=== PATIENT | male | born 1945 | race Caucasian/White ===

== ENCOUNTER → 2018-08-18 07:08 | Outpatient (CLI) | payer BC, SELFPAY ==
[2018-08-18 09:53] LABS: Cholesterol 203 mg/dL (140-199); HDL Cholesterol 29 mg/dL (40-60); LDL Cholesterol Calculated 154 mg/dL (<100); Triglycerides 100 mg/dL (35-150)
[2018-08-20 14:04] LABS: PSA, Total < 0.1 ng/mL (< 4.1)
== END ==
PROVIDERS: PCP Family Medicine; Visit Provider Internal Medicine Cardiovascular Disease
DX: I25.10 Atherosclerotic heart disease of native coronary artery without angina pectoris (principal); C61 Malignant neoplasm of prostate
CPT/HCPCS: 36415; 80061; 84153; 84154

== ENCOUNTER → 2018-09-16 09:33 | Outpatient (CLI) | payer BC, SELFPAY ==
--- NOTE | 2018-09-16 | DI.US.S_ITS ---
PROCEDURE: US SCROTUM INDICATIONS: LEFT SIDE HERNIA TECHNIQUE: Real-time scanning was performed of the scrotum and testicles, with image documentation. Color and pulse Doppler interrogation was performed of both testicles. COMPARISON: None. FINDINGS: Right: Testicle is normal in size at 2.2 x 3.0 x 5.3 cm, and homogenous in echotexture. Epididymis is normal in overall size and morphology. No hydrocele or varicoceles. Overlying scrotal skin is normal in thickness. Left: Testicle is normal in size at 2.2 x 2.7 x 3.4 cm, and homogeneous in echotexture. Epididymis is normal in overall size and morphology. No hydrocele or varicoceles. Overlying scrotal skin is normal in thickness. Left groin area evaluation reveals no evidence of hernia. Doppler: Color and pulse Doppler demonstrate normal and symmetric arterial flow in both testicles. IMPRESSION: At time of scanning there is no visualized evidence of hernia on the left. Scrotal ultrasound appears normal bilaterally. Dictated by: Kenroy Caro M.D. on 09/16/2018 at 11:42 Approved by: Kenroy Caro M.D. on 09/16/2018 at 11:43
== END ==
PROVIDERS: PCP Family Medicine; Visit Provider Family Medicine
DX: K40.90 Unilateral inguinal hernia, without obstruction or gangrene, not specified as recurrent (principal)
CPT/HCPCS: 76870

== ENCOUNTER → 2018-10-01 14:29 | Outpatient (CLI) | payer BC, SELFPAY ==
--- NOTE | 2018-10-01 14:36 | DI.CT.S_ITS ---
PROCEDURE: CT ABDOMEN PELVIS W CON INDICATIONS: Unilateral inguinal hernia, without obstruction TECHNIQUE: After the administration of oral and intravenous contrast, 5 mm thick sections acquired from the diaphragms to the symphysis. 5 mm thick coronal and sagittal reformats were performed. For radiation dose reduction, the following was used: automated exposure control, adjustment of mA and/or kV according to patient size. COMPARISON: None. FINDINGS: Image quality: Diagnostic. ABDOMEN: Lung bases: Lung bases are clear. Heart size is normal. Coronary artery atherosclerosis is present. Solid organs: The liver is somewhat hypodense when compared to the spleen. There is a small hypodense lesion identified involving the periphery of the posterior segment of the right hepatic lobe that demonstrates central nodular enhancement measuring 1.2 cm in diameter (image 21, series 2), compatible with a small hemangioma. No definite additional hepatic lesions are evident. The spleen, pancreas, and adrenals are within normal limits. Multiple parapelvic cysts are evident involving both kidneys. A 3 mm nonobstructing inferior right renal calculus is present. No definite additional renal calculi are identified. Peritoneum and bowel: There is a slight hernia. The stomach is otherwise unremarkable. Borderline prominent small bowel loops are present without sachin obstruction. No bowel loops are seen measuring greater than 3 cm. A large amount of stool is seen within the proximal colon. The distal colon is normal in caliber. No free fluid, loculated fluid collection or free air is evident. There is a very small fat-containing periumbilical hernia. Nodes and vessels: No retroperitoneal or mesenteric adenopathy. Aorta and inferior vena cava are normal in caliber. There is aortic atherosclerosis. Bones: No acute fractures or suspicious osseous lesions are identified. Mild to moderate degenerative changes of the spine are most pronounced involving the lower lumbar levels. PELVIS: Genitourinary: Bladder wall thickness is normal. The prostate appears to be surgically absent. A penile pump/implant is present. Miscellaneous: There is a small left inguinal hernia that contains a portion of the colon. The proximal and distal margins of the colon are within normal limits. There is a small fat-containing right inguinal hernia. Bones: No suspicious bony lesions. No acute pelvic fractures are evident. Moderate degenerative changes of the pelvic joints are present. IMPRESSION: 1. Small moderate-sized left inguinal hernia contains a portion of the sigmoid colon. There is no bowel obstruction. 2. Probable proximal colonic constipation. 3. Small fat-containing periumbilical hernia. 4. Mild hepatic steatosis. There is a small hemangioma of the right hepatic lobe. 5. Small hiatal hernia. 6. Nonobstructing inferior right nephrolithiasis. 7. Status post prostatectomy. A penile implant is present. Dictated by: Cheng Ramos M.D. on 10/01/2018 at 16:47 Approved by: Cheng Ramos M.D. on 10/01/2018 at 16:55
[2018-10-01 15:10] LABS: Estimated Glomerular Filt Rate > 60.0 mL/min (>60)
== END ==
PROVIDERS: PCP Family Medicine; Visit Provider Family Medicine
DX: K40.90 Unilateral inguinal hernia, without obstruction or gangrene, not specified as recurrent (principal); K46.9 Unspecified abdominal hernia without obstruction or gangrene; K76.0 Fatty (change of) liver, not elsewhere classified; K44.9 Diaphragmatic hernia without obstruction or gangrene; D18.09 Hemangioma of other sites; N20.0 Calculus of kidney
CPT/HCPCS: 36415; 74177; 82565

== ENCOUNTER → 2019-06-03 17:11 | Outpatient (CLI) | payer BC, SELFPAY ==
[2019-06-03 17:55] LABS: Influenza A - CEPHEID Flu A NEGATIVE (NEGATIVE); Influenza B - CEPHEID Flu B NEGATIVE (NEGATIVE)
== END ==
PROVIDERS: PCP Family Medicine; Visit Provider Physician Assistant
DX: J11.1 Influenza due to unidentified influenza virus with other respiratory manifestations (principal)
CPT/HCPCS: 87502

== ENCOUNTER → 2019-06-04 07:41 | Outpatient (CLI) | payer BC, SELFPAY ==
[2019-06-04 08:41] LABS: Add Manual Diff / Slide Review NO; Basophils Absolute Auto 0 /uL (0-100); Basophils Percent Auto 0.5 % (0-2); Eosinophils Absolute Auto 0 /uL (0-450); Eosinophils Percent Auto 1.2 % (2-4); Hematocrit 47.5 % (41-53); Lymphocytes Absolute Auto 700 /uL (1100-4500); Lymphocytes Percent Auto 21.5 % (25-40); Mean Corpuscular HGB Conc 33.6 % (30-36); Mean Corpuscular Hemoglobin 30.4 PG (26-34); Mean Corpuscular Volume 90.4 fL (80-100); Monocytes Absolute Auto 300 /uL (0-900); Monocytes Percent Auto 10.2 % (3-14); Neutrophils Absolute Auto 2200 /uL (1500-7000); Neutrophils Percent Auto 66.6 % (50-75); Platelet Count 126 X10^3/uL (150-400); Red Blood Cell Count 5.25 X10^6/uL (4.5-5.9); Red Cell Distribution Width 13.8 % (11.6-14.8); White Blood Cell Count 3.3 X10^3/uL (4.5-11.0)
[2019-06-04 08:45] LABS: Appearance Urine UA SL CLOUDY; Bilirubin Urine UA NEGATIVE (NEGATIVE); Color Urine UA YELLOW; Glucose Urine UA NEGATIVE (Negative); Ketones Urine UA TRACE (NEGATIVE); Leukocyte Esterase Urine UA 2+ (NEGATIVE); Nitrite Urine UA POSITIVE (Negative); Occult Blood Urine UA 3+ (Negative); Protein Urine UA TRACE (Negative); Specific Gravity Urine UA 1.025 (1.000-1.035); Urobilinogen Urine UA 0.2 E.U./dL (0.2); pH Urine UA 5.5 (4.5-8.0)
[2019-06-04 08:48] LABS: Monotest Negative (Negative)
[2019-06-04 09:02] LABS: Bacteria Urine Many (>30); Culture Indicated Urine Specimen Cultured; RBC Urine 5-10/HPF (0-5/HPF); WBC Urine 30-100/HPF (0-5/HPF)
[2019-06-04 09:10] LABS: Alanine Aminotransferase 24 IU/L (<50); Albumin Globulin Ratio 1.3 (1.0-2.8); Alkaline Phosphatase 47 U/L (38-126); Aspartate Aminotransferase 26 IU/L (17-59); BUN Creatinine Ratio 24.4 (6-22); Bilirubin Total 0.4 mg/dL (0.2-1.3); Blood Urea Nitrogen 22 mg/dL (9-20); Calcium 8.8 mg/dL (8.4-10.2); Carbon Dioxide 31 mmol/L (22-32); Chloride 101 mmol/L (98-107); Creatine Kinase 60 U/L (55-170); Estimated Glomerular Filt Rate > 60.0 mL/min (>60); Globulin 3.2 g/dL (1.7-4.1); Glucose 112 mg/dL (80-110); HEMOLYSIS < 15 (0-50); Potassium 3.9 mmol/L (3.4-5.1); Sodium 139 mmol/L (137-145); Total Protein 7.2 g/dL (6.3-8.2)
[2019-06-04 09:41] LABS: Prostate Specific Antigen < 0.064 ng/mL (0.10-4.00)
[2019-06-04 09:43] LABS: TSH w/ Reflex to FT4 1.65 uIU/mL (0.47-4.68)
== END ==
PROVIDERS: PCP Family Medicine; Referring Provider Physician Assistant; Visit Provider Physician Assistant
DX: R53.83 Other fatigue (principal)
CPT/HCPCS: 36415; 80053; 81001; 82550; 84153; 84443; 85025; 86318; 87077; 87086; 87186

== ENCOUNTER → 2020-03-30 10:55 | Outpatient (CLI) | payer BC, SELFPAY ==
[2020-03-30 11:35] LABS: BUN Creatinine Ratio 19.2 (6-22); Blood Urea Nitrogen 15 mg/dL (9-20); Estimated Glomerular Filt Rate > 60.0 mL/min (>60)
== END ==
PROVIDERS: PCP Family Medicine; Referring Provider Family Medicine; Visit Provider Family Medicine
DX: R10.32 Left lower quadrant pain (principal)
CPT/HCPCS: 36415; 82565; 84520

== ENCOUNTER → 2020-03-31 08:56 | Outpatient (CLI) | payer BC, SELFPAY ==
--- NOTE | 2020-03-31 10:11 | DI.CT.S_ITS ---
PROCEDURE: CT ABDOMEN PELVIS W CON INDICATIONS: Left lower quadrant pain TECHNIQUE: After the administration of oral and intravenous contrast, 5 mm thick sections acquired from the diaphragms to the symphysis. 5 mm thick coronal and sagittal reformats were performed. For radiation dose reduction, the following was used: automated exposure control, adjustment of mA and/or kV according to patient size. COMPARISON: [facility], CT, CT ABDOMEN PELVIS W CON, 10/01/2018, 15:40. FINDINGS: Image quality: Excellent. ABDOMEN: Lung bases: Lung bases are clear. Heart size is normal. Solid organs: Liver is normal in size and enhancement. Gallbladder is normal. Biliary system is non-dilated. Pancreas enhances normally. Spleen is normal in size and enhancement. No adrenal nodules. Kidneys are normal in size and enhancement, without hydronephrosis. Small nonobstructive renal calculi are present in right kidney. Mild bilateral renal pelviectasis. Peritoneum and bowel: Stomach, small bowel, and colon loops are normal in caliber and wall thickness. Mild sigmoid diverticulosis. No acute diverticulitis. There is a large amount of stool in colon. No free fluid or air. Nodes and vessels: No retroperitoneal or mesenteric adenopathy. Aorta and inferior vena cava are normal in caliber. Miscellaneous: No ventral hernias. PELVIS: Genitourinary: Bladder wall thickness is normal. Prostate is surgically absent. There is a penile prosthesis in the left anterior pelvis. Miscellaneous: No inguinal hernias or adenopathy. There are postsurgical changes related to left inguinal hernia repair. No recurrent inguinal hernia. Bones: No suspicious bony lesions. No vertebral body compression fractures. IMPRESSION: 1. Mild diverticulosis without diverticulitis. 2. A penile prosthesis is noted in the left anterior pelvis. 3. Postsurgical changes related to left inguinal hernia repair 4. A large amount of stool in colon. Dictated by: Larissa Burns M.D. on 03/31/2020 at 13:44 Approved by: Larissa Burns M.D. on 03/31/2020 at 16:45
== END ==
PROVIDERS: PCP Family Medicine; Referring Provider Family Medicine; Visit Provider Family Medicine
DX: R10.32 Left lower quadrant pain (principal); K57.30 Diverticulosis of large intestine without perforation or abscess without bleeding; N20.0 Calculus of kidney; Z90.79 Acquired absence of other genital organ(s)
CPT/HCPCS: 74177; Q9967

== ENCOUNTER → 2020-05-12 11:09 | Outpatient (CLI) | payer BC, SELFPAY ==
[2020-05-12] MEDS: COVID-19 VACC #1, MRNA(MOD) 100 MCG/0.5 ML VIAL IM (11:20)
== END ==
PROVIDERS: PCP Family Medicine; Visit Provider Internal Medicine
DX: Z23 Encounter for immunization (principal)
CPT/HCPCS: 0011A; 91301

== ENCOUNTER → 2020-05-24 09:42 | Outpatient (CLI) | payer BC, SELFPAY ==
--- NOTE | 2020-05-24 | DI.MRI.S_ITS ---
PROCEDURE: MR HEAD/BRAIN WO/W CON INDICATIONS: Memory/Cognitive changes TECHNIQUE: Noncontrast axial T1 spin echo, axial T2 fast spin echo, sagittal and axial FLAIR, coronal T2 fast spin echo, axial gradient echo, axial diffusion and ADC through the brain. After the administration of contrast, axial and coronal T1 spin echo with fat saturation through the brain. COMPARISON: None. FINDINGS: Image quality: Excellent. CSF spaces: Basal cisterns are patent. No extra-axial fluid collections. Ventricles are normal in size and shape. Brain: No midline shift. No intracranial bleeds or masses. No abnormal intracranial enhancement. There is cerebral volume loss for age. There is periventricular white matter chronic small vessel ischemic change. The brainstem appears normal. Diffusion-weighted images demonstrate no acute ischemic insults. No chronic ischemic insults. Normal intravascular flow voids are present. Skull and face: Calvarial marrow is normal in signal. Orbits appear normal. Sinuses: Sinuses and mastoids appear clear. IMPRESSION: 1. Volume loss and small vessel ischemic disease. 2. No acute process. No recent infarct. Dictated by: Tomas Mario M.D. on 05/24/2020 at 10:52 Approved by: Tomas Mario M.D. on 05/24/2020 at 10:54
== END ==
PROVIDERS: PCP Family Medicine; Referring Provider Family Medicine; Visit Provider Family Medicine
DX: R41.89 Other symptoms and signs involving cognitive functions and awareness (principal)
CPT/HCPCS: 70553

== ENCOUNTER → 2020-06-09 12:10 | Outpatient (CLI) | payer BC, SELFPAY ==
[2020-06-09] MEDS: COVID-19 VACC #2, MRNA(MOD) 100 MCG/0.5 ML VIAL IM (12:19)
== END ==
PROVIDERS: PCP Family Medicine; Visit Provider Internal Medicine
DX: Z23 Encounter for immunization (principal)
CPT/HCPCS: 0012A; 91301

== ENCOUNTER → 2020-06-26 09:08 | Outpatient (CLI) | payer BC, SELFPAY ==
--- NOTE | 2020-06-26 09:10 | DI.RAD.S_ITS ---
PROCEDURE: XR CERVICAL SPINE 4V OR 5V INDICATIONS: cervical radiculopathy TECHNIQUE: 5 views of the cervical spine acquired. COMPARISON: None. FINDINGS: Bones: No fractures or dislocations to the C7-T1 level. There is grade 1 anterolisthesis of C4 on C5. Degenerative endplate changes are noted at C4-5 and C5-6 levels. Oblique images demonstrate mild bilateral bony foraminal stenosis at C4-5 and C5-6 levels. Soft tissues: No prevertebral soft tissue swelling. IMPRESSION: No cervical spine fracture or dislocation. Degenerative disc disease at C4-5 and C5-6 levels with suggestion of mild bilateral bony foraminal stenosis as above. Dictated by: Carlos Enrique Meng M.D. on 06/26/2020 at 9:04 Approved by: Carlos Enrique Meng M.D. on 06/26/2020 at 9:05
== END ==
PROVIDERS: PCP Family Medicine; Referring Provider Physical Medicine & Rehabilitation; Visit Provider Physical Medicine & Rehabilitation
DX: M50.121 Cervical disc disorder at C4-C5 level with radiculopathy (principal); M75.42 Impingement syndrome of left shoulder
CPT/HCPCS: 20611; 72050; 99214; J1040

== ENCOUNTER → 2020-08-23 14:09 | Outpatient (CLI) | payer BC, SELFPAY ==
--- NOTE | 2020-08-23 14:11 | DI.RAD.S_ITS ---
PROCEDURE: XR SHOULDER LT MIN 2V INDICATIONS: Shoulder impingement TECHNIQUE: 3 views of the shoulder were acquired. COMPARISON: None. FINDINGS: Bones: No fractures or dislocations. No suspicious bony lesions. Visualized ribs appear intact. Moderate AC joint osteoarthritis, moderately severe glenohumeral joint degenerative osteoarthritis also. Soft tissues: No suspicious soft tissue calcifications. IMPRESSION: Moderate to moderately severe degenerative changes at the left shoulder which would predispose to impingement syndrome. Dictated by: Kenroy Caro M.D. on 08/23/2020 at 14:43 Approved by: Kenroy Caro M.D. on 08/23/2020 at 14:44
== END ==
PROVIDERS: PCP Family Medicine; Referring Provider Physical Medicine & Rehabilitation; Visit Provider Physical Medicine & Rehabilitation
DX: M75.42 Impingement syndrome of left shoulder (principal); M19.012 Primary osteoarthritis, left shoulder
CPT/HCPCS: 73030

== ENCOUNTER → 2020-09-20 11:42 | Outpatient (CLI) | payer BC, SELFPAY ==
--- NOTE | 2020-09-20 11:43 | DI.MRI.S_ITS ---
PROCEDURE: MR CERVICAL SPINE WO CON INDICATIONS: Cervical radiculopathy TECHNIQUE: Noncontrast sagittal T1 spin echo and T2 fast spin echo, sagittal STIR, foraminal oblique sagittal T2 fast spin echo, and axial gradient echo or T2 fast spin echo through the cervical spine. COMPARISON: None. FINDINGS: Image quality: Excellent. Alignment and Curvature: Normal cervical spine vertebral body height and alignment. Bone Marrow: No suspicious focal marrow signal abnormality. There is marrow edema in association with the left C3-C4 facets (best seen on series 5, image 14), with some adjacent soft tissue edema as well. Spinal Cord: Normal morphology and signal intensity of the cervical cord. There is no syrinx. Regional Soft Tissues: No paravertebral masses. Prevertebral soft tissues are otherwise normal in thickness. C2-C3: No spinal canal or neural foraminal stenosis. C3-C4: Posterior disc osteophyte complex flattens the ventral thecal sac. Facet and uncovertebral hypertrophy contribute to moderate left and mild right neural foraminal stenosis. C4-C5: Posterior disc osteophyte complex flattens the ventral thecal sac. Moderate-severe bilateral neural foraminal narrowing due to facet and uncovertebral hypertrophy. C5-C6: Posterior disc osteophyte complex flattens the ventral thecal sac without mass effect upon the cord. Severe bilateral neural foraminal narrowing due to facet and uncovertebral hypertrophy. C6-C7: Posterior disc osteophyte complex flattens the ventral thecal sac without mass effect upon the cord. Mild bilateral neural foraminal narrowing due to facet and uncovertebral hypertrophy. C7-T1: No significant degenerative changes, spinal canal stenosis, or neural foraminal stenosis. IMPRESSION: Varying degrees of neural foraminal stenosis, severe bilaterally at C5-C6 and moderate-severe bilaterally at C4-C5. Dictated by: Apolinar Olivares M.D. on 09/20/2020 at 15:06 Approved by: Apolinar Olivares M.D. on 09/20/2020 at 15:16
== END ==
PROVIDERS: PCP Family Medicine; Referring Provider Physical Medicine & Rehabilitation; Visit Provider Physical Medicine & Rehabilitation
DX: M54.12 Radiculopathy, cervical region (principal); M48.02 Spinal stenosis, cervical region
CPT/HCPCS: 72141

== ENCOUNTER → 2020-10-31 08:00 | Outpatient (CLI) | payer BC, SELFPAY ==
[2020-10-31 12:47] LABS: COVID19 -Nasal RAPID Negative (Negative)
== END ==
PROVIDERS: PCP Family Medicine; Visit Provider Physical Medicine & Rehabilitation
DX: Z20.822 Contact with and (suspected) exposure to COVID-19 (principal)
CPT/HCPCS: 87635; C9803

== ENCOUNTER 2020-11-02 08:51 | Outpatient (CLI) | payer BC, SELFPAY ==
[2020-11-02] VITALS (8 sets, daily range): BP systolic 122–147; BP diastolic 70–88; PULSE 55–63; RESP 12–20; TEMP 36.1; O2SAT 96–99
--- NOTE | 2020-11-02 08:52 | DI.RAD.S_ITS ---
PROCEDURE: PAIN C/T INTERLAMINAR INJECT INDICATIONS: SPINAL STENOSIS COMPARISON: [facility], MR, MR CERVICAL SPINE WO CON, 09/20/2020, 11:45. FINDINGS: Fluoroscopic spot filming was performed to verify placement of a spinal needle at the C6-C7 level, as labeled on the films. Appropriate location of the needle tip was confirmed by injection of iodinated contrast. IMPRESSION: No significant intraprocedural abnormality. Dictated by: Keith Rangel M.D. on 11/02/2020 at 10:31 Approved by: Keith Rangel M.D. on 11/02/2020 at 10:31
[2020-11-02] MEDS: MIDAZOLAM 5 MG/5 ML VIAL IV (09:31)
[2020-11-02] MEDS: fentaNYL 100 MCG/2 ML INJ 50 MCG IV (09:31)
[2020-11-02] MEDS: IOPAMIDOL 15 ML VIAL 3 ML INJ (09:36)
[2020-11-02] MEDS: BUPIVACAINE 0.25% (PF) VIAL 2 ML INJ (09:36)
[2020-11-02] MEDS: DEXAMETHASONE 10 MG/ML VIAL 30 MG INJ (09:37)
--- NOTE | 2020-11-02 09:53 | P.PCN_ITS ---
Date/Time/Diagnoses Date of procedure: 11/02/20 Time of procedure: 09:53 Pre-procedure diagnosis: 1. CERVICAL STENOSIS, 2. CERVICAL HNP WITH UPPER EXTREMITY RADICULAR FEATURES Post-procedure diagnosis: same Procedure Notes Procedure: 1. FLUORSCOPICALLY GUIDED CONTRAST CONTROLLED INTERLAMINAR EPIDURAL STEROID INJECTION - C6/7 TL SHYAM Indications: Steve is referred by Dr. العلي for treatment of Cervical HNP with Upper Extremity Paresthesias. Physician: Andrés Ramos Total Fluoroscopy time (seconds): 28 Total sedation minutes: 15 Complications: none Procedure in detail & Post-procedure care: FINDINGS Cervical Stenosis due to disc deterioration and nerve root irritation and nerve root irritation DESCRIPTION OF PROCEDURE Fluoroscopically guided, contrast-controlled C6/7 translaminar epidural steroid injection with conscious sedation. Following review of allergy and review of potential side effects and complications, including, but not necessarily limited to, infection, allergic reaction, local tissue breakdown, temporary as well as permanent nerve injury, stroke, paralysis, and possible , the patient indicated that patient understood and agreed to proceed. An informed consent document was signed by the patient, witnessed by a nurse, and placed in the patient's chart. Additionally, other treatment options including modalities, medications, and physical therapy were reviewed with the patient. After review of previous anaesthesic history and IV conscious sedation the patient was deemed safe to proceed with today?s procedure with IV conscious sedation as ASA class II designation. Safety time-out was performed to confirm patient ID, procedure to be performed and site of procedure. IV sedation was accomplished with a combination of 2mg of Versed and 50mcg of Fentanyl administered by the RN after DO order, titrated to patient comfort during the course of the procedure while the patient remained responsive to all verbal commands. In the prone position, following sterile prep and drape of the cervical region, the C6/7 translaminar space was identified fluoroscopically. The skin was anesthetized via a 25-gauge 1.5-inch needle with 1% lidocaine solution. At this point, a 25-gauge, 2.5-inch short bevel spinal needle was atraumatically introduced and advanced under fluoroscopic guidance into epidural space at the C6/7 translaminar space. Depth was confirmed on lateral view. Radiological data, including multiple fluoroscopic views of the cervical spine, reveal a spinal needle at the C6/7 translaminar space. Lateral views then show placement of the needle in the epidural space. Subsequent views show contrast material flowing superiorly and inferiorly in the epidural space. DSA fluoroscopy with live contrast injection, once again, confirmed no vascular or intrathecal uptake. At this point, using loss of resistance technique with saline and air, the epidural space was entered. Following negative aspiration, injection of appr oximately 1.5 cc of [id number] with live fluoroscopy in the AP view confirmed epidural flow in the epidural space without vascular or intrathecal uptake observed. Subsequently, a test dose of 1 cc of 1% lidocaine solution was injected and patient was observed for two minutes without signs or symptoms of complications, including abdominal pain, shortness of breath, bilateral upper or lower extremity weakness, nausea and vomiting, prior to steroid injection. At this point, 3cc or 30mg of dexamethasone was then injected without incident. The patient tolerated the procedure well without signs or symptoms of complications prior to being transferred to the recovery area for further monitoring, The patient was then transferred to the recovery area where they were observed for an appropriate period of time after the injection. The patient reported a VAS score of 6 prior to the procedure and a post-procedure VAS of 0. POST OP INSTRUCTIONS The patient was provided a Pain Log to continue to record their response to the target-specific procedure prior to follow-up visit with the referring provider. Additionally, specific post-injection care instructions and a contact number to our office were provided if concerns arise regarding possible complications associated with the procedure are suspected.
== END 2020-11-02 10:09 | disposition home or self-care (01) ==
LOC: RAD 08:52
PROVIDERS: PCP Family Medicine; Referring Provider Physical Medicine & Rehabilitation; Visit Provider Physical Medicine & Rehabilitation
DX: M48.02 Spinal stenosis, cervical region (principal); M50.123 Cervical disc disorder at C6-C7 level with radiculopathy
CPT/HCPCS: 62321; 99152; J1100; J2250; J3010

== ENCOUNTER 2020-11-13 11:19 | Emergency (ER) | payer BC, SELFPAY ==
[2020-11-13] VITALS (16 sets, daily range): BP systolic 115–152; BP diastolic 69–94; PULSE 48–70; RESP 11–26; TEMP 35.5; O2SAT 93–97; BMI 26.6
[2020-11-13] MEDS: ONDANSETRON 4 MG/2 ML INJ IV (11:43)
[2020-11-13 11:56] LABS: Add Manual Diff / Slide Review NO; Basophils Absolute Auto 0 /uL (0-100); Basophils Percent Auto 0.3 % (0-2); Eosinophils Absolute Auto 0 /uL (0-450); Eosinophils Percent Auto 0.3 % (2-4); Hematocrit 50.9 % (41-53); Hemoglobin 17.2 g/dL (13.5-17.5); Lymphocytes Absolute Auto 1000 /uL (1100-4500); Lymphocytes Percent Auto 14.2 % (25-40); Mean Corpuscular HGB Conc 33.8 % (30-36); Mean Corpuscular Hemoglobin 30.8 PG (26-34); Mean Corpuscular Volume 91.1 fL (80-100); Monocytes Absolute Auto 500 /uL (0-900); Monocytes Percent Auto 6.2 % (3-14); Neutrophils Absolute Auto 5800 /uL (1500-7000); Platelet Count 176 X10^3/uL (150-400); Red Blood Cell Count 5.59 X10^6/uL (4.5-5.9); Red Cell Distribution Width 13.6 % (11.6-14.8); White Blood Cell Count 7.3 X10^3/uL (4.5-11.0)
[2020-11-13 12:45] LABS: Alanine Aminotransferase 27 IU/L (<50); Albumin Globulin Ratio 1.4 (1.0-2.8); Alkaline Phosphatase 49 U/L (38-126); Aspartate Aminotransferase 28 IU/L (17-59); BUN Creatinine Ratio 33.8 (6-22); Bilirubin Total 0.7 mg/dL (0.2-1.3); Blood Urea Nitrogen 23 mg/dL (9-20); Calcium 8.9 mg/dL (8.4-10.2); Carbon Dioxide 28 mmol/L (22-32); Chloride 105 mmol/L (98-107); Creatine Kinase 51 U/L (55-170); Estimated Glomerular Filt Rate > 60.0 mL/min (>60); Globulin 2.8 g/dL (1.7-4.1); Glucose 167 mg/dL (80-110); HEMOLYSIS 29 (0-50); Lipase 55 U/L (23-300); Magnesium 2.2 mg/dL (1.6-2.3); Potassium 4.2 mmol/L (3.4-5.1); Sodium 138 mmol/L (137-145); Total Protein 6.8 g/dL (6.3-8.2)
[2020-11-13 12:56] LABS: NT-proBNP (BNP-Adult 18+) 138 pg/mL (<125); Troponin I < 0.012 ng/mL (0.01-0.034)
[2020-11-13 13:34] LABS: Bacteria Urine None Seen; RBC Urine None Seen (0-5/HPF); WBC Urine None Seen (0-5/HPF)
[2020-11-13 13:38] LABS: Appearance Urine UA CLEAR; Bilirubin Urine UA NEGATIVE (NEGATIVE); Color Urine UA YELLOW; Glucose Urine UA NEGATIVE (Negative); Ketones Urine UA TRACE (NEGATIVE); Leukocyte Esterase Urine UA NEGATIVE (NEGATIVE); Nitrite Urine UA NEGATIVE (Negative); Occult Blood Urine UA NEGATIVE (Negative); Protein Urine UA NEGATIVE (Negative); Specific Gravity Urine UA 1.015 (1.000-1.035); Urobilinogen Urine UA 0.2 E.U./dL (0.2)
[2020-11-13 13:49] LABS: Culture Indicated Urine Cult Not Indicated
--- NOTE | 2020-11-13 14:30 | ED_ITS ---
HPI - Nausea/Vomiting/Diarrhea General Chief complaint: Nausea/Vomiting/Diarrhea Stated complaint: weak, lethargic, vomitting, mentally out of it Time Seen by Provider: 11/13/20 14:29 Source: patient and family () Mode of arrival: Wheelchair Limitations: no limitations History of Present Illness HPI Narrative: This is a 75-year-old male who comes in with symptoms of nausea and vomiting and feeling weak and just not quite himself on Friday. Patient felt fine yesterday and was back to his normal baseline and today had 2 more episodes of vomiting. He has had some decrease in his stool output he has had bowel movements but states lip or retention coloration. Patient states that had less over the last several days but still had solid stools. He denies any pain. He was nauseated earlier and some Zofran had some improvement. He denies any fevers but has felt hot and flushed intermittently. No cold cough or congestion, no chest pain or shortness of breath. Patient has not had any dysuria, urgency or frequency. He does have a history of prostate cancer and had his prostate removed as well as cardiac stent about 7 years ago. He takes meloxicam, venlafaxine, carvedilol, losartan, pravastatin and vitamin-D as well as rivastigmine patch for memory issues. He does not have a formal diagnosis of Alzheimer's dementia but has had some chronic memory issues. Patient is not allergic to any medications. He does do a nicotine minute regularly, he has not had any alcohol for several years and no illicit. His primary care doctor is Dr. العلي. Patient is able to answer most questions but his does augment these. Related Data Home Medications Medication Instructions Recorded Confirmed aspirin 81 mg tablet,delayed 81 mg PO DAILY 06/03/19 08/25/20 release (Adult Aspirin Regimen) carvedilol 12.5 mg tablet 12.5 mg PO ONCE tab 06/03/19 08/25/20 losartan 25 mg tablet 25 mg PO DAILY 06/03/19 08/25/20 pravastatin 10 mg tablet 10 mg PO DAILY 06/03/19 08/25/20 amlodipine 2.5 mg tablet mg PO DAILY tab 06/26/20 08/25/20 cholecalciferol (vitamin D3) 50 50 mcg PO DAILY 06/26/20 08/25/20 mcg (2,000 unit) capsule diphenhydramine HCl 25 mg tablet 25 mg PO BEDTIME 06/26/20 08/25/20 (Allergy (diphenhydramine)) rivastigmine 1 patch TRANSDERMAL DAILY ea 06/26/20 08/25/20 venlafaxine 37.5 mg 37.5 mg PO DAILY 06/26/20 08/25/20 capsule,extended release 24 hr Previous Rx's Medication Instructions Recorded meloxicam 15 mg tablet 15 mg PO DAILY #30 tab 08/25/20 ondansetron 4 mg disintegrating 4 mg PO Q6H PRN #5 tab 11/13/20 tablet Allergies Allergy/AdvReac Type Severity Reaction Status Date / Time No Known Drug Allergies Allergy Unverified 11/13/20 11:34 Review of Systems Review of Systems ROS Unobtainable: All systems reviewed & are unremarkable except as noted in HPI and below Patient History Medical History Cervical radiculitis Facet arthropathy, cervical Fatigue Impingement syndrome of left shoulder Surgical History H/O prostatectomy Family History Unknown No pertinent family history Social History Smoking Status: Former smoker Smoking Status: Former smoker tobacco type: smokeless tobacco Substance Use Type: does not use Exam Narrative Exam Narrative: GENERAL: Alert and oriented x three, male in mild distress. HEENT: Head normocephalic, atraumatic, EOMI, pupils reactive, face symmetric, moist mucous membranes NECK: Supple, full range of motion CARDIOVASCULAR: Regular rate and rhythm without murmurs, rubs or gallops. RESPIRATORY: Breath sounds equal bilaterally, no wheezes rales or rhonchi. ABDOMEN: Soft, nontender. Normoactive bowel sounds all 4 quadrants. No guarding or rebound, rigidity, no mass. Not distended. : No CVA tenderness EXTREMITIES: Normal range of motion, no clubbing or edema. Neurovascularly intact NEUROLOGICAL: Cranial nerves II through XII grossly intact. Moving all extremities SKIN: Warm, dry, no petechiae, no rashes or lesions. Initial Vital Signs Initial Vital Signs: Vital Signs Temperature 96 F L 11/13/20 11:29 Pulse Rate 57 L 11/13/20 11:29 Respiratory Rate 16 11/13/20 11:29 Blood Pressure 152/94 H 11/13/20 11:29 Pulse Oximetry 95 11/13/20 11:29 Course Orders Ordered: ED Orders 11/13/20 11:43 Complete Blood Count AUTO DIFF Stat 11/13/20 11:58 EKG-12 Lead Stat 11/13/20 12:20 BNP [NT-proBNP (BNP-Adult 18+)] Stat Comprehensive Metabolic Panel Stat Lipase Stat Magnesium Stat Troponin & CK Cardiac Panel Stat 11/13/20 13:15 Urinalysis and Microscopic Stat 11/13/20 14:51 CT abdomen pelvis w con Stat 11/13/20 15:25 COVID19 -Nasal swab/Pre-Proc Stat Discontinued Medications Sodium Chloride (Normal Saline 0.9%) 1,000 mls @ 1,000 mls/hr IV BOLUS ONE Stop: 11/13/20 15:30 Last Infusion: 11/13/20 16:23 Dose: 0 mls/hr Documented by: Admin: 11/13/20 15:08 Dose: 1,000 mls/hr Documented by: YI Metoclopramide HCl (Metoclopramide 10 Mg/2 Ml Inj) 5 mg IV NOW ONE Stop: 11/13/20 14:47 Last Admin: 11/13/20 15:07 Dose: 5 mg Documented by: YI Ondansetron HCl (Ondansetron 4 Mg/2 Ml Inj) 4 mg IV NOW ONE Stop: 11/13/20 11:39 Last Admin: 11/13/20 11:43 Dose: 4 mg Documented by: YAW Vital Signs Vital signs: Vital Signs - 8 hr 11/13/20 11:29 11/13/20 11:49 11/13/20 11:51 Temperature 96 F L Pulse Rate 57 L 53 L 49 L Respiratory Rate 16 19 Blood Pressure 152/94 H 136/79 Pulse Oximetry 95 95 11/13/20 12:00 11/13/20 12:30 11/13/20 12:31 Temperature Pulse Rate 48 L 49 L 49 L Respiratory Rate 11 L 14 14 Blood Pressure 142/72 H 128/73 Pulse Oximetry 96 95 95 11/13/20 13:00 11/13/20 13:30 11/13/20 14:00 Temperature Pulse Rate 70 53 L 65 Respiratory Rate 16 19 Blood Pressure 127/76 137/77 Pulse Oximetry 95 93 94 11/13/20 14:30 11/13/20 14:31 11/13/20 15:00 Temperature Pulse Rate 69 60 68 Respiratory Rate 23 17 26 H Blood Pressure 123/84 Pulse Oximetry 97 97 96 11/13/20 15:01 11/13/20 15:30 11/13/20 16:00 Temperature Pulse Rate 57 L 60 54 L Respiratory Rate 17 13 13 Blood Pressure 143/83 H 133/77 115/69 Pulse Oximetry 97 96 96 11/13/20 16:30 Temperature Pulse Rate 64 Respiratory Rate 13 Blood Pressure 121/74 Pulse Oximetry 96 MDM - Nausea/Vomiting/Diarrhea Lab Data Result diagrams: 11/13/20 11:43 11/13/20 12:20 Labs: Lab Results 11/13/20 11/13/20 11/13/20 Range/Units 11:43 11:43 12:20 WBC 7.3 (4.5-11.0) X10^3/uL RBC 5.59 (4.5-5.9) X10^6/uL Hgb 17.2 (13.5-17.5) g/dL Hct 50.9 (41-53) % MCV 91.1 (80-100) fL MCH 30.8 (26-34) PG MCHC 33.8 (30-36) % RDW 13.6 (11.6-14.8) % Plt Count 176 (150-400) X10^3/uL Neut % (Auto) 79.0 H (50-75) % Lymph % (Auto) 14.2 L (25-40) % [place] % (Auto) 6.2 (3-14) % Eos % (Auto) 0.3 L (2-4) % Baso % (Auto) 0.3 (0-2) % Neut # (Auto) 5800 (8370-5895) /uL Lymph # (Auto) 1000 L (9198-4816) /uL [place] # (Auto) 500 (0-900) /uL Eos # (Auto) 0 (0-450) /uL Baso # (Auto) 0 (0-100) /uL Sodium Cancelled Potassium Cancelled Chloride Cancelled Carbon Dioxide Cancelled BUN Cancelled Creatinine Cancelled Estimated GFR Cancelled BUN/Creatinine Ratio Cancelled Glucose Cancelled Calcium Cancelled Magnesium (1.6-2.3) mg/dL Total Bilirubin Cancelled AST Cancelled ALT Cancelled Alkaline Phosphatase Cancelled Total Creatine Kinase (55-170) U/L CK-MB (CK-2) CK-MB (CK-2) Rel Index Troponin I (0.01-0.034) ng/mL NT-Pro-B Natriuret Pep (<125) pg/mL Total Protein Cancelled Albumin Cancelled Globulin Cancelled Albumin/Globulin Ratio Cancelled Lipase 55 (23-300) U/L Urine Color Urine Appearance Urine pH (4.5-8.0) Ur Specific [place] (1.000-1.035) Urine Protein (Negative) Urine Glucose (UA) (Negative) g/dL Urine Ketones (NEGATIVE) Urine Occult Blood (Negative) Urine Nitrate (Negative) Urine Bilirubin (NEGATIVE) Urine Urobilinogen (0.2) E.U./dL Ur Leukocyte Esterase (NEGATIVE) Urine RBC (0-5/HPF) Urine WBC (0-5/HPF) Urine Bacteria (None) Ur Culture Indicated? SARS-CoV-2 (PCR) (Negative) 11/13/20 11/13/20 11/13/20 Range/Units 12:20 13:15 15:25 WBC (4.5-11.0) X10^3/uL RBC (4.5-5.9) X10^6/uL Hgb (13.5-17.5) g/dL Hct (41-53) % MCV (80-100) fL MCH (26-34) PG MCHC (30-36) % RDW (11.6-14.8) % Plt Count (150-400) X10^3/uL Neut % (Auto) (50-75) % Lymph % (Auto) (25-40) % [place] % (Auto) (3-14) % Eos % (Auto) (2-4) % Baso % (Auto) (0-2) % Neut # (Auto) (7530-8153) /uL Lymph # (Auto) (6971-9798) /uL [place] # (Auto) (0-900) /uL Eos # (Auto) (0-450) /uL Baso # (Auto) (0-100) /uL Sodium 138 Potassium 4.2 Chloride 105 Carbon Dioxide 28 BUN 23 H Creatinine 0.68 Estimated GFR > 60.0 BUN/Creatinine Ratio 33.8 H Glucose 167 H Calcium 8.9 Magnesium 2.2 (1.6-2.3) mg/dL Total Bilirubin 0.7 AST 28 ALT 27 Alkaline Phosphatase 49 Total Creatine Kinase 51 L (55-170) U/L CK-MB (CK-2) TNP CK-MB (CK-2) Rel Index TNP Troponin I < 0.012 (0.01-0.034) ng/mL NT-Pro-B Natriuret Pep 138 H (<125) pg/mL Total Protein 6.8 Albumin 4.0 Globulin 2.8 Albumin/Globulin Ratio 1.4 Lipase (23-300) U/L Urine Color Yellow Urine Appearance Clear Urine pH 7.0 (4.5-8.0) Ur Specific [place] 1.015 (1.000-1.035) Urine Protein Negative (Negative) Urine Glucose (UA) Negative (Negative) g/dL Urine Ketones Trace H (NEGATIVE) Urine Occult Blood Negative (Negative) Urine Nitrate Negative (Negative) Urine Bilirubin Negative (NEGATIVE) Urine Urobilinogen 0.2 (0.2) E.U./dL Ur Leukocyte Esterase Negative (NEGATIVE) Urine RBC None seen (0-5/HPF) Urine WBC None seen (0-5/HPF) Urine Bacteria None seen (None) Ur Culture Indicated? Cult not indicated SARS-CoV-2 (PCR) Negative (Negative) Imaging Data CT scan - abdomen/pelvis: Radiologist's Impression: [address] [id number] Scan ReportSigned Patient: Steve Dowell CMR#: [id number]: 7Acct:[id number]/Sex: 75 / MDate of Service: 11/13/20Loc: EDAccession Number: [id number] Procedure: CT abdomen pelvis w con Ordering Provider: Deja Reyez D.O. PROCEDURE: CT ABDOMEN PELVIS W CON INDICATIONS: Intermittent vomiting, orange stool TECHNIQUE: After the administration of intravenous contrast, axial sections acquired from the lung bases to the pubic symphysis. Coronal and sagittal reformats were performed. For radiation dose reduction, the following was used: automated exposure control, adjustment of mA and/or kV according to patient size. COMPARISON: [facility], CT, CT ABDOMEN PELVIS W CON, 03/31/2020, 10:01. FINDINGS: Image quality: Excellent. Lung bases: Unremarkable. Heart: Severe coronary artery calcifications. Minimal pericardial effusion. Normal heart size. ABDOMEN: Liver: Unremarkable. Gallbladder: Unremarkable. Biliary ducts: Unremarkable. Pancreas: Unremarkable. Spleen: Unremarkable. Adrenal Glands: Unremarkable. Kidneys and Ureters: Multiple small nonobstructing right renal stones. No hydronephrosis involving either kidney. No masses. Normal renal enhancement. Stomach and Bowel: Mild sigmoid diverticulosis without evidence of diverticulitis. Bowel otherwise unremarkable. Peritoneum: No abnormal intraperitoneal fluid. No free air. Ventral Wall: No hernias. Abdominal Nodes: No retroperitoneal or mesenteric adenopathy by size criteria. Vessels: Aorta and inferior vena cava are normal in size. PELVIS: Pelvic Organs: Prostate is not identified. Bladder: Unremarkable. Pelvic Nodes: No enlarged lymph nodes. Miscellaneous: Tiny right inguinal fat containing hernia. No inguinal adenopathy identified. Penile prosthesis. Bones: Lumbar degenerative change. IMPRESSION: 1. No evidence acute abdominal process. 2. Right nephrolithiasis. No hydronephrosis. 3. Small fat containing right inguinal hernia. 4. Coronary artery disease. 5. Penile prosthesis. Dictated by: Juancho Calvillo M.D. on 11/13/2020 at 15:20 Approved by: Juancho Calvillo M.D. on 11/13/2020 at 15:26 ECG Data Interpretation: Sinus Ronnell a, incomplete left bundle branch. Rate of 40 9p are 180 QRS of 114 QTC of 406. No acute ST changes appreciated. MDM Narrative Medical decision making narrative: Labs show a normal CBC except for elevation in neutrophils, BUN is 20 with normal electrolytes and renal function. Glucose is 167 with negative abdominal labs. Troponin is negative with a BNP of 138. Urine shows trace ketones but is otherwise negative for infection or blood, is elevated but no changes to electrolytes or creatinine. A negative COVID swab on 10/31/2020 but this was repeated patient's abdominal exam is reassuring but with his intermittent symptoms CT abdomen pelvis was ordered as well as a 1L of fluids. An additional dose of antinausea medicine was given in the department. Patient has not any further emesis here. Vitals have been appropriate. Discussed today's findings with the patient and family. No clear exact cause there is a small fat containing inguinal hernia but patient is nontender on exam in this region and does not have any signs of obstruction or bowel involved he has a kidney stone on the right kidney but also this is unlikely cause of his symptoms today. Discharge Plan Departure Patient Disposition: Home Clinical Impression: Hernia, inguinal, right, Dehydration Instructions: DI for Dehydration -- Adult, DI for Vomiting -- Adult Activity Restrictions/Additional Instructions: Follow up with your physician for recheck in the next several days. There is no clear obvious cause of your symptoms today from your lab work or imaging. There has been quite a few people having viral illnesses causing nausea, vomiting and diarrhea recently and this is potentially a cause. You may take Zofran 1 tablet every 6 hours as needed for nausea. Prescription was [facility] to [facility]. On your imaging you do have a right sided fat containing inguinal hernia. You do have a small right renal stone in your kidney but this is not the cause of your pain. Please return for fevers, new or worsening symptoms, persistent vomiting, black or bloody stools, lightheadedness or passing out, increasing or worsening mentation or other new or concerning symptoms. Prescriptions: New ondansetron 4 mg tablet,disintegrating 4 mg PO Q6H PRN (Reason: nausea and vomiting) Qty: 5 RF: 0 No Action pravastatin 10 mg tablet 10 mg PO DAILY RF: 0 losartan 25 mg tablet 25 mg PO DAILY RF: 0 carvedilol 12.5 mg tablet 12.5 mg PO ONCE RF: 0 aspirin [Adult Aspirin Regimen] 81 mg tablet,delayed release (DR/EC) 81 mg PO DAILY RF: 0 meloxicam 15 mg tablet 15 mg PO DAILY Qty: 30 RF: 2 venlafaxine 37.5 mg capsule,extended release 24hr 37.5 mg PO DAILY RF: 0 cholecalciferol (vitamin D3) 50 mcg (2,000 unit) capsule 50 mcg PO DAILY RF: 0 diphenhydramine HCl [Allergy (diphenhydramine)] 25 mg tablet 25 mg PO BEDTIME RF: 0 rivastigmine 4.6 mg/24 hour patch 24 hour 1 patch transdermal DAILY RF: 0 amlodipine 2.5 mg tablet PO DAILY RF: 0 Referrals: Andrés العلي MD [Primary Care Provider] -
--- NOTE | 2020-11-13 14:51 | DI.CT.S_ITS ---
PROCEDURE: CT ABDOMEN PELVIS W CON INDICATIONS: Intermittent vomiting, orange stool TECHNIQUE: After the administration of intravenous contrast, axial sections acquired from the lung bases to the pubic symphysis. Coronal and sagittal reformats were performed. For radiation dose reduction, the following was used: automated exposure control, adjustment of mA and/or kV according to patient size. COMPARISON: [facility], CT, CT ABDOMEN PELVIS W CON, 03/31/2020, 10:01. FINDINGS: Image quality: Excellent. Lung bases: Unremarkable. Heart: Severe coronary artery calcifications. Minimal pericardial effusion. Normal heart size. ABDOMEN: Liver: Unremarkable. Gallbladder: Unremarkable. Biliary ducts: Unremarkable. Pancreas: Unremarkable. Spleen: Unremarkable. Adrenal Glands: Unremarkable. Kidneys and Ureters: Multiple small nonobstructing right renal stones. No hydronephrosis involving either kidney. No masses. Normal renal enhancement. Stomach and Bowel: Mild sigmoid diverticulosis without evidence of diverticulitis. Bowel otherwise unremarkable. Peritoneum: No abnormal intraperitoneal fluid. No free air. Ventral Wall: No hernias. Abdominal Nodes: No retroperitoneal or mesenteric adenopathy by size criteria. Vessels: Aorta and inferior vena cava are normal in size. PELVIS: Pelvic Organs: Prostate is not identified. Bladder: Unremarkable. Pelvic Nodes: No enlarged lymph nodes. Miscellaneous: Tiny right inguinal fat containing hernia. No inguinal adenopathy identified. Penile prosthesis. Bones: Lumbar degenerative change. IMPRESSION: 1. No evidence acute abdominal process. 2. Right nephrolithiasis. No hydronephrosis. 3. Small fat containing right inguinal hernia. 4. Coronary artery disease. 5. Penile prosthesis. Dictated by: Juancho Calvillo M.D. on 11/13/2020 at 15:20 Approved by: Juancho Calvillo M.D. on 11/13/2020 at 15:26
[2020-11-13] MEDS: METOCLOPRAMIDE 10 MG/2 ML INJ 5 MG IV (15:07)
[2020-11-13] MEDS: SODIUM CHLORIDE 0.9% 1,000 ML 1000 ML IV (15:08)
[2020-11-13 15:58] LABS: COVID19 -Nasal RAPID Negative (Negative)
== END 2020-11-13 16:58 | disposition home or self-care (01) ==
PROVIDERS: Emergency Provider Emergency Medicine; PCP Family Medicine
DX: K40.90 Unilateral inguinal hernia, without obstruction or gangrene, not specified as recurrent (principal); E86.0 Dehydration; Z20.822 Contact with and (suspected) exposure to COVID-19
CPT/HCPCS: 36415; 74177; 80053; 81001; 82550; 83690; 83735; 83880; 84484; 85025; 87635; 93005; 96361; 96374; 96375; 99284; C9803; J2405; J2765; Q9967

== ENCOUNTER → 2021-01-22 09:25 | Outpatient (CLI) | payer BC, SELFPAY ==
[2021-01-22 13:15] LABS: COVID19 -Nasal RAPID Negative (Negative)
== END ==
PROVIDERS: PCP Family Medicine; Visit Provider Physical Medicine & Rehabilitation
DX: Z20.822 Contact with and (suspected) exposure to COVID-19 (principal)
CPT/HCPCS: 87635; C9803

== ENCOUNTER 2021-01-23 09:21 | Outpatient (CLI) | payer BC, SELFPAY ==
[2021-01-23] VITALS (7 sets, daily range): BP systolic 112–134; BP diastolic 65–80; PULSE 51–60; RESP 10–17; TEMP 36.4; O2SAT 92–99
--- NOTE | 2021-01-23 09:22 | DI.RAD.S_ITS ---
PROCEDURE: PAIN C/T FACET INJ/BLK 1ST L INDICATIONS: SPINAL STENOSIS COMPARISON: [facility], , PAIN C/T INTERLAMINAR INJECT, 11/02/2020, 9:38. FINDINGS: Fluoroscopic spot filming was performed to verify placement of spinal needles at the C4, C5, C6, and C7 levels on the left, as labeled on the films. Appropriate location(s) of the needle tip(s) was confirmed by injection of iodinated contrast. IMPRESSION: Intraprocedural examination within normal limits. Dictated by: Keith Rangel M.D. on 01/23/2021 at 10:07 Approved by: Keith Rangel M.D. on 01/23/2021 at 10:07
[2021-01-23] MEDS: fentaNYL 100 MCG/2 ML INJ 50 MCG IV (10:10)
[2021-01-23] MEDS: MIDAZOLAM 5 MG/5 ML VIAL IV (10:10)
[2021-01-23] MEDS: IOPAMIDOL 15 ML VIAL 3 ML INJ (10:22)
[2021-01-23] MEDS: BUPIVACAINE 0.25% (PF) VIAL 30 ML (10:22)
[2021-01-23] MEDS: DEXAMETHASONE 10 MG/ML VIAL 30 MG INJ (10:23)
--- NOTE | 2021-01-23 10:29 | P.PCN_ITS ---
Date/Time/Diagnoses Date of procedure: 01/23/21 Time of procedure: 10:29 Pre-procedure diagnosis: 1. FACET ARTHROPATHY 2. AXIAL NECK PAIN Post-procedure diagnosis: same Procedure Notes Procedure: 1. FLUOROSCOPICALLY GUIDED, CONTRAST-CONTROLLED LEFT C4, C5, C6, C7 MBB. Indications: Steve is referred by Dr. العلي for treatment of Axial Neck Pain Physician: Andrés Ramos Total Fluoroscopy time (seconds): 11 Total sedation minutes: 15 Complications: none Procedure in detail & Post-procedure care: DESCRIPTION OF PROCEDURE Fluoroscopically guided, contrast-controlled left C4, C5, C6, C7 Medial Branch B locks. Following review of allergy and review of potential side effects and complications, including, but not necessarily limited to, infection, allergic reaction, local tissue breakdown, stroke, temporary or permanent nerve injury and paralysis, the patient indicated that the patient understood and agreed to proceed. An informed consent document was signed by the patient, witnessed by a nurse, and placed in the patient's chart. Additionally, other treatment options including medications, modalities, and physical therapy were reviewed with the patient. After review of previous anaesthesic history and IV conscious sedation the patient was deemed safe to proceed with today?s procedure with IV conscious sedation as ASA class II designation. Safety time-out was performed to confirm patient ID, procedure to be performed and site of procedure. IV sedation was accomplished with a combination of 3mg of Versed and 50mcg of Fentanyl was administered by the RN after DO order, titrated to patient comfort during the course of the procedure while the patient remained responsive to all verbal commands Time-out was taken to identify the correct patient, procedure and side prior to starting the procedure. Lying in the prone position, the patient was prepped and draped in the usual sterile fashion using Chlorhexaidine scrub and a fenestrated drape. The level was determined under fluoroscopy. The skin was anesthetized via a 25-gauge 1.5-inch needle with 1% lidocaine solution into the corresponding left C4, C5, C6, C7 lateral pillars. At this point, a 22-gauge short bevel spinal needle was atraumatically introduced and advanced under fluoroscopic guidance to the anatomical pillars. Following negative aspiration, injections of approximately 0.1cc of Isovue 200 confirmed interarticular placement without vascular uptake. At this point, a total of 1cc of 0.5% and 5mg of dexamethason was injected without complication into each of the corresponding medial branch anatomical location. The patient tolerated the procedure well without signs or symptoms of complications prior to transfer to the recovery area continued monitoring without incident. The patient was then transferred to the recovery area where they were observed for an appropriate period of time after the injection. The patient reported a VAS score of 7 prior to the procedure and a post- procedure VAS of 1. POST OP INSTRUCTIONS They were provided a Pain Log to continue to record their response to the target-specific procedure prior to their follow-up visit with their referring p hysician. Additionally, specific post-injection care instructions and a contact number to our office were provided if concerns arise regarding possible complications associated with the procedure are suspected.
== END 2021-01-23 11:08 | disposition home or self-care (01) ==
LOC: RAD 09:22
PROVIDERS: PCP Family Medicine; Referring Provider Physical Medicine & Rehabilitation; Visit Provider Physical Medicine & Rehabilitation
DX: M47.812 Spondylosis without myelopathy or radiculopathy, cervical region (principal); M54.2 Cervicalgia
CPT/HCPCS: 64490; 64491; 64492; 99152; J1100; J2250; J3010

== ENCOUNTER → 2021-07-30 11:19 | Outpatient (CLI) | payer BC, SELFPAY ==
[2021-07-30 12:15] LABS: Appearance Urine UA CLEAR; Bilirubin Urine UA NEGATIVE (NEGATIVE); Color Urine UA YELLOW; Glucose Urine UA NEGATIVE (Negative); Ketones Urine UA NEGATIVE (NEGATIVE); Leukocyte Esterase Urine UA NEGATIVE (NEGATIVE); Nitrite Urine UA NEGATIVE (Negative); Occult Blood Urine UA TRACE-INTACT (Negative); Protein Urine UA NEGATIVE (Negative); Urobilinogen Urine UA 0.2 E.U./dL (0.2)
[2021-07-30 12:21] LABS: RBC Urine 1-5/HPF (0-5/HPF); WBC Urine None Seen (0-5/HPF)
[2021-07-30 12:22] LABS: Bacteria Urine None Seen; Culture Indicated Urine Cult Not Indicated
== END ==
PROVIDERS: PCP Family Medicine; Referring Provider Urology; Visit Provider Urology
DX: N39.3 Stress incontinence (female) (male) (principal)
CPT/HCPCS: 81001

== ENCOUNTER → 2021-08-02 15:19 | Outpatient (CLI) | payer BC, SELFPAY ==
[2021-08-02 16:04] LABS: COVID19 -Nasal RAPID Negative (Negative)
== END ==
PROVIDERS: PCP Family Medicine; Visit Provider Family Medicine Sleep Medicine
DX: Z20.822 Contact with and (suspected) exposure to COVID-19 (principal)
CPT/HCPCS: 87635; C9803

== ENCOUNTER → 2021-08-03 12:27 | Day surgery (SDC) | payer BC, SELFPAY ==
[2021-08-03] VITALS (7 sets, daily range): BP systolic 109–120; BP diastolic 72–83; PULSE 11–71; RESP 10–16; TEMP 36.3–36.7; O2SAT 96–98; BMI 29.5
--- NOTE | 2021-08-03 11:38 | P.HP_ITS ---
History of Present Illness History of Present Illness Date Patient Seen: 08/03/21 Chief complaint: SDC Narrative: 76 Years Old Male seen today for consideration of a screening colonoscopy. First and last colonoscopy in 2012, indicated for screening and significant for 2 small tubular adenomas in the ascending colon and sigmoid colon. Sigmoid diverticulosis also noted. There have been no lower GI symptoms suggesting disease such as change in bowel habits, bleeding, abdominal pain or anemia. There's been no family history of colon cancer or colon polyps. Overall health issues have been stable, including no major cardiac events for at least 6 weeks. 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[employer]) Household Members: Marcela Patient History Medical History Cervical radiculitis Facet arthropathy, cervical Fatigue Impingement syndrome of left shoulder Surgical History H/O prostatectomy Family & Social History Family History Unknown No pertinent family history Tobacco & Substance use: Smoking Status Former smoker Substance Use Type does not use Meds Home Medications and Allergies Home Medications Medication Instructions Recorded Confirmed Type aspirin 81 mg tablet,delayed 81 mg PO DAILY 06/03/19 08/03/21 History release (Adult Aspirin Regimen) carvedilol 12.5 mg tablet 12.5 mg PO ONCE tab 06/03/19 08/03/21 History losartan 25 mg tablet 25 mg PO DAILY 06/03/19 08/03/21 History pravastatin 10 mg tablet 10 mg PO DAILY 06/03/19 08/03/21 History amlodipine 2.5 mg tablet 2.5 mg PO DAILY tab 06/26/20 08/03/21 History cholecalciferol (vitamin D3) 50 50 mcg PO DAILY 06/26/20 08/03/21 History mcg (2,000 unit) capsule diphenhydramine HCl 25 mg tablet 25 mg PO BEDTIME 06/26/20 08/03/21 History (Allergy (diphenhydramine)) rivastigmine 1 patch TRANSDERMAL DAILY ea 06/26/20 08/03/21 History venlafaxine 37.5 mg 37.5 mg PO DAILY 06/26/20 08/03/21 History capsule,extended release 24 hr celecoxib 200 mg capsule (Celebrex) 200 mg PO DAILY #30 cap 12/22/20 08/03/21 Rx naproxen sodium 220 mg capsule 220 mg PO Q12H 12/22/20 08/03/21 History (Aleve) Allergies Allergy/AdvReac Type Severity Reaction Status Date / Time No Known Drug Allergies Allergy Unverified 02/19/21 14:13 Review of Systems Review of Systems Narrative: All remaining ROS were reviewed and negative except as addressed. Exam Narrative Exam Narrative: GENERAL: Alert and oriented, appearing stated age and in no acute distress. HEENT: Head normocephalic/atraumatic. Extraocular movements intact. LUNGS: Clear to ausculation bilaterally, no wheezes, rhonchi or rales. CV: Normal S1 and S2 with regular rate and rhythm, no audible murmurs, rubs or gallops. ABDOMEN: Soft, non-tender, non-distended, no organomegaly. Positive bowel sounds. EXTREMITIES: No clubbing, cyanosis, or edema. NEURO: Cranial nerves II through XII grossly intact, no focal deficits. PSYCH: Alert and oriented x 3. SKIN: No concerning lesions. Assessment & Plan Assessment & Plan narrative: 1. History of colon polyps 2. Screening for colon cancer 3. Diverticulosis Plan for colonoscopy. The nature and character of the procedure as well as anticipated results were discussed. The possibility of not completing the procedure was also discussed. Possible complications including aspiration pneumonia, bleeding, perforation and reaction to medications either for sedation or preparation and missed lesions were discussed. Questions were answered and proceeding to the colonoscopy was elected. Informed consent signed. I sincerely appreciate the referral allowing me to participate in this patient's care. Please contact me with any questions or concerns.
--- NOTE | 2021-08-03 11:40 | PM.OP.COLON ---
Operative Date/Time/Diagnoses Date of procedure: 08/03/21 Procedure Notes SCOAP/Timeout: 1:10 p.m. Procedure in detail: ENDOSCOPIST: Susu Day MD Sedation RN: Apoorva Wilkinson RN Sedation start time: 1:11 p.m. Sedation end time: 1:38 p.m. PROCEDURE: Colonoscopy INDICATIONS: 1. History of colon polyps 2. Screening for colon cancer 3. Diverticulosis MEDICATION: Levsin 0.125 mg sublingual, incremental doses of Versed and fentanyl until appropriate level sedation achieved. ASA CLASS: 2 CECAL WITHDRAWAL TIME: 12 minutes COMPLICATIONS: None. EXTENT OF PROCEDURE: Cecum. QUALITY OF PREP: Good with portions of liquid stool. PROCEDURE: Prior to insertion of the colonoscope, a digital rectal examination was accomplished with circumferential palpation of the distal rectal mucosa without significant findings being noted. The high-definition colonoscope was passed into the rectum in the usual fashion and advanced over to the cecum without difficulty. The ileocecal valve, appendiceal stoma, and medial wall all could be inspected and no abnormalities were seen. ASCENDING COLON: As the colonoscope was withdrawn, care was taken to expose and inspect the haustral folds and no abnormalities were seen. HEPATIC FLEXURE: Normal, no polyps, diverticula or other abnormalities. TRANSVERSE COLON: Normal, no polyps, diverticula or other abnormalities. DESCENDING COLON: Normal, no polyps, diverticula or other abnormalities. SIGMOID COLON: Minor diverticulosis, otherwise, normal, no polyps or other abnormalities. RECTUM: Normal. J maneuver was produced. There was no significant perianal disease. The J maneuver was broken. The remainder of the rectum was inspected and there was no external hemorrhoid disease. The scope was withdrawn. IMPRESSION: 1. Normal colonoscopy 2. Sigmoid diverticulosis, minor PLAN: 1. Secondary to patient's age, this could be his last screening colonoscopy. The possibility of a missed lesion including a malignancy has been discussed with the patient previously. Potential alarm symptoms have been discussed and should be reported immediately.
[2021-08-03] MEDS: HYOSCYAMINE 0.125 MG TABLET PO (12:58)
[2021-08-03] MEDS: LACTATED RINGERS 1,000 ML 200 ML IV (13:02)
[2021-08-03] MEDS: MIDAZOLAM 5 MG/5 ML VIAL 7 MG IV (13:22)
[2021-08-03] MEDS: fentaNYL 250 MCG/5 ML INJ 200 MCG IV (13:22)
== END | disposition home or self-care (01) ==
PROVIDERS: PCP Family Medicine; Referring Provider Student in an Organized Health Care Education/Training Program; Visit Provider Student in an Organized Health Care Education/Training Program
PROC: 0DJD8ZZ Inspection of Lower Intestinal Tract, Via Natural or Artificial Opening Endoscopic (ICD-10-PCS; CPT 45378; principal; 2021-08-03 13:45)
DX: Z12.11 Encounter for screening for malignant neoplasm of colon (principal); Z86.010 Personal history of colon polyps; K57.30 Diverticulosis of large intestine without perforation or abscess without bleeding
CPT/HCPCS: 45378; J2250; J3010

== ENCOUNTER → 2021-08-10 09:51 | Outpatient (CLI) | payer BC, SELFPAY ==
[2021-08-10 11:59] LABS: COVID-19 CEPHEID PCR (VTM/NP) Negative (Negative)
== END ==
PROVIDERS: PCP Family Medicine; Visit Provider Family Medicine Sleep Medicine
DX: Z20.822 Contact with and (suspected) exposure to COVID-19 (principal)
CPT/HCPCS: C9803; U0003; U0005

== ENCOUNTER → 2022-02-05 08:39 | Outpatient (CLI) | payer BC, SELFPAY ==
[2022-02-05 09:39] LABS: Alanine Aminotransferase 22 IU/L (<50); Albumin 3.8 g/dL (3.5-5.0); Albumin Globulin Ratio 1.4 (1.0-2.8); Alkaline Phosphatase 62 U/L (38-126); Aspartate Aminotransferase 18 IU/L (17-59); BUN Creatinine Ratio 25.9 (6-22); Bilirubin Total 0.5 mg/dL (0.2-1.3); Blood Urea Nitrogen 22 mg/dL (9-20); Calcium 8.5 mg/dL (8.4-10.2); Carbon Dioxide 26 mmol/L (22-32); Chloride 105 mmol/L (98-107); Cholesterol 215 mg/dL (140-199); Estimated Glomerular Filt Rate > 60 mL/min (>60); Globulin 2.8 g/dL (1.7-4.1); Glucose 123 mg/dL (80-110); HDL Cholesterol 26 mg/dL (40-60); HEMOLYSIS < 15 (0-50); LDL Cholesterol Calculated 150 mg/dL (<100); Potassium 4.1 mmol/L (3.4-5.1); Sodium 138 mmol/L (137-145); Total Protein 6.6 g/dL (6.3-8.2); Triglycerides 196 mg/dL (35-150)
== END ==
PROVIDERS: PCP Family Medicine; Referring Provider Nurse Practitioner; Visit Provider Nurse Practitioner
DX: I25.10 Atherosclerotic heart disease of native coronary artery without angina pectoris (principal); I25.5 Ischemic cardiomyopathy
CPT/HCPCS: 36415; 80053; 80061

== ENCOUNTER → 2022-04-25 13:27 | Outpatient (CLI) | payer BC, SELFPAY ==
--- NOTE | 2022-04-25 13:31 | DI.RAD.S_ITS ---
PROCEDURE: XR SHOULDER LT MIN 2V INDICATIONS: LEFT SHOULDER PAIN TECHNIQUE: 3 views of the shoulder were acquired. COMPARISON: [facility], , XR SHOULDER LT MIN 2V, 08/23/2020, 14:18. FINDINGS: Bones: No fractures or dislocations. Moderate degenerative change at the AC joint and glenohumeral joint. AC joint interval is at the upper limits of normal. No suspicious bony lesions. Well corticated ossicle inferior to the left glenoid. Visualized ribs appear intact. Soft tissues: No suspicious soft tissue calcifications. 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 Dictated by: Spencer Tapia M.D. on 04/25/2022 at 21:52 Approved by: Spencer Tapia M.D. on 04/25/2022 at 21:54
== END ==
PROVIDERS: PCP Family Medicine; Referring Provider Family Medicine; Visit Provider Family Medicine
DX: M25.512 Pain in left shoulder (principal); M19.012 Primary osteoarthritis, left shoulder
CPT/HCPCS: 73030

== ENCOUNTER 2022-09-26 08:30 | Outpatient (RCR) | payer BC, MEDICARE, OTHER, SELFPAY | END 2022-09-26 10:30 | LOC: CAR 08:30 | PROVIDERS: PCP Family Medicine; Referring Provider Internal Medicine Cardiovascular Disease; Visit Provider Internal Medicine Cardiovascular Disease | DX: Z95.5 Presence of coronary angioplasty implant and graft (principal) | CPT/HCPCS: 93798 ==

== ENCOUNTER → 2023-11-05 12:33 | Outpatient (CLI) | payer MEDICARE, OTHER, SELFPAY ==
--- NOTE | 2023-11-05 12:36 | DI.RAD.S_ITS ---
PROCEDURE: XR SHOULDER LT MIN 2V INDICATIONS: LT SHOUDLER PAIN TECHNIQUE: 3 views of the shoulder were acquired. COMPARISON: [facility], CR, XR SHOULDER LT MIN 2V, 04/25/2022, 14:27. FINDINGS: Bones: No fractures or dislocations. No suspicious bony lesions. Visualized ribs appear intact. Moderate joint space narrowing and flattening of the humeral head. Ovoid intra-articular loose body noted inferiorly Soft tissues: No suspicious soft tissue calcifications. IMPRESSION: Moderate glenohumeral osteoarthritis with small loose body Approved by: Anthony Conley M.D. on 11/05/2023 at 23:25
== END ==
PROVIDERS: PCP Family Medicine; Referring Provider Family Medicine; Visit Provider Family Medicine
DX: M19.012 Primary osteoarthritis, left shoulder (principal); M24.012 Loose body in left shoulder; M25.512 Pain in left shoulder; G89.29 Other chronic pain
CPT/HCPCS: 73030

== ENCOUNTER → 2023-12-11 11:48 | Outpatient (CLI) | payer MEDICARE, OTHER, SELFPAY ==
--- NOTE | 2023-12-11 11:49 | DI.MRI.S_ITS ---
PROCEDURE: MR LUMBAR SPINE WO CON INDICATIONS: CHRONIC BILATERAL LOW BACK PAIN TECHNIQUE: Noncontrast sagittal T1 spin echo and T2 fast echo, sagittal STIR, and T2 fast spin echo through the lumbar spine. In cases with scoliosis, additional coronal T2 fast spin echo may be performed. COMPARISON: None. FINDINGS: Image quality: Excellent. Alignment and Curvature: There is normal bony alignment. Bone Marrow: Marrow is of normal overall signal. No acute vertebral body compression fractures. Spinal Cord: Conus medullaris terminates at the L1 level. Visualized cord demonstrates normal signal and size. Paraspinous Soft Tissues: No paravertebral masses. T12-L1: Normal appearance. L1-L2: Mild facet hypertrophy. No canal stenosis or foraminal stenosis. L2-L3: Mild disc bulge. Mild facet hypertrophy. No canal stenosis or foraminal stenosis. L3-L4: Disc bulge. Facet and ligament hypertrophy. Mild canal stenosis. Mild bilateral foraminal stenosis. L4-L5: Moderate diffuse disc bulge. Facet and ligament hypertrophy. Wjus-gl-fhwofdzw canal stenosis. Ngfu-pm-[id number] bilateral foraminal stenosis. L5-S1: Disc bulge. Facet hypertrophy. No canal stenosis. Mild bilateral foraminal stenosis. IMPRESSION: 1. Multilevel underlying facet arthropathy. 2. Canal stenosis is mild at L3-L4 and [id number]-la-hqtjkyda at L4-L5. 3. Multilevel foraminal narrowing as described above, [id number] at L4-L5. No foraminal nerve root impingement. Dictated by: Juancho Calvillo M.D. on 12/11/2023 at 19:38 Approved by: Juancho Calvillo M.D. on 12/11/2023 at 19:41
== END ==
PROVIDERS: PCP Family Medicine; Referring Provider Family Medicine; Visit Provider Family Medicine
DX: M48.061 Spinal stenosis, lumbar region without neurogenic claudication (principal); M48.07 Spinal stenosis, lumbosacral region; M47.26 Other spondylosis with radiculopathy, lumbar region; M47.27 Other spondylosis with radiculopathy, lumbosacral region; M51.16 Intervertebral disc disorders with radiculopathy, lumbar region; M51.17 Intervertebral disc disorders with radiculopathy, lumbosacral region; M89.29 Other disorders of bone development and growth, multiple sites
CPT/HCPCS: 72148

== ENCOUNTER → 2025-02-08 09:42 | Outpatient (CLI) | payer MEDICARE, OTHER, SELFPAY ==
--- NOTE | 2025-02-08 09:45 | DI.RAD.S_ITS ---
PROCEDURE: XR KNEE RT 3V INDICATIONS: BILATERAL KNEE PAIN TECHNIQUE: 3 views of the knee were acquired. COMPARISON: None. FINDINGS: Bones: No fractures or dislocations. No suspicious bony lesions. Tricompartmental osteoarthritic changes with joint space narrowing and osteophytosis. Moderate medial compartment joint space narrowing bilaterally. Soft tissues: No joint effusion. No suspicious soft tissue calcifications. Atherosclerotic vascular calcifications. IMPRESSION: Moderate osteoarthritic changes of the bilateral knees, most pronounced within the medial tibial femoral compartments. Dictated by: Rasheed Galan M.D. on 02/08/2025 at 12:58 Approved by: Rasheed Galan M.D. on 02/08/2025 at 12:59
--- NOTE | 2025-02-08 09:45 | DI.RAD.S_ITS ---
PROCEDURE: XR KNEE LT 3V INDICATIONS: BILATERAL KNEE PAIN TECHNIQUE: 3 views of the knee were acquired. COMPARISON: None. FINDINGS: Bones: No fractures or dislocations. No suspicious bony lesions. Tricompartmental osteoarthritic changes with joint space narrowing and osteophytosis. Moderate medial compartment joint space narrowing bilaterally. Soft tissues: Small joint effusion. No suspicious soft tissue calcifications. Atherosclerotic vascular calcifications. IMPRESSION: Moderate osteoarthritic changes of the bilateral knees, most pronounced within the medial tibial femoral compartments. Dictated by: Rasheed Galan M.D. on 02/08/2025 at 12:48 Approved by: Rasheed Galan M.D. on 02/08/2025 at 12:58
== END ==
LOC: RAD 09:44
PROVIDERS: PCP Family Medicine; Referring Provider Family Medicine; Visit Provider Family Medicine
DX: M25.561 Pain in right knee (principal); M25.562 Pain in left knee; M25.462 Effusion, left knee; G89.29 Other chronic pain
CPT/HCPCS: 73562

== ENCOUNTER 2025-03-04 17:14 | Emergency (ER) | payer MEDICARE, OTHER, SELFPAY ==
[2025-03-04 17:20] VITALS: BP 122/78; PULSE 68; RESP 17; TEMP 36.3; O2SAT 95; BMI 29.5
--- NOTE | 2025-03-04 17:23 | DI.RAD.S_ITS ---
PROCEDURE: XR CHEST 1V INDICATIONS: Chest Pain TECHNIQUE: One view of the chest was acquired. COMPARISON: None. FINDINGS: Surgical changes and devices: None. Lungs and pleura: Lungs are clear. No pleural effusions or pneumothorax. Mediastinum: Mediastinal contours appear normal. Heart size is normal. Bones and chest wall: No suspicious bony lesions. Overlying soft tissues appear unremarkable. IMPRESSION: No acute cardiopulmonary abnormalities or focal consolidation. Dictated by: Orlando Santiago M.D. on 03/04/2025 at 18:53 Approved by: Orlando Santiago M.D. on 03/04/2025 at 18:53
--- NOTE | 2025-03-04 17:24 | EKG_ITS ---
[address] [id number] [address] [address] Test Date: 2025-03-04 Pat Name: Steve Dowell Department: Room: Gender: Male [address] Reporter: COLBY : 1945 Requested By: Order Number: [id number] Reading MD: Hemant Ribeiro MD Measurements Intervals [place] Rate: 66 P: 62 ND: 170 QRS: -8 QRSD: 112 T: 26 QT: 390 QTc: 408 Interpretive Statements Normal sinus rhythm Minimal voltage criteria for LVH, may be normal variant ( [employer] product ) Electronically Signed On 03-05-2025 9:28:15 PST by Hemant Ribeiro MD
[2025-03-04 17:52] LABS: Add Manual Diff / Slide Review NO; Hematocrit 49.0 % (41-53); Hemoglobin 17.1 g/dL (13.5-17.5); Lymphocytes Absolute Auto 1100 /uL (1100-4500); Mean Corpuscular HGB Conc 34.9 % (30-36); Mean Corpuscular Hemoglobin 31.1 PG (26-34); Mean Corpuscular Volume 89.1 fL (80-100); Platelet Count 203 X10^3/uL (150-400)
[2025-03-04 17:57] LABS: INR 1.0 (0.9-1.3); Prothrombin Time 11.6 SECONDS (9.4-12.5)
[2025-03-04 18:01] LABS: PTT Partial Thromboplastin Tim 28 SECONDS (25.1-36.5)
[2025-03-04 18:02] LABS: Alanine Aminotransferase 37 IU/L (<50); Albumin 4.4 g/dL (3.5-5.0); Albumin Globulin Ratio 1.6 (1.0-2.8); Alkaline Phosphatase 69 U/L (38-126); Blood Urea Nitrogen 29 mg/dL (9-20); Calcium 9.0 mg/dL (8.4-10.2); Carbon Dioxide 22 mmol/L (22-32); Chloride 107 mmol/L (98-107); Creatine Kinase 107 U/L (55-170); Estimated Glomerular Filt Rate > 60 mL/min (>60); Globulin 2.8 g/dL (1.7-4.1); Glucose 104 mg/dL (70-99); Lipase 77 U/L (23-300); Magnesium 2.1 mg/dL (1.6-2.3); Sodium 139 mmol/L (137-145); Total Protein 7.2 g/dL (6.3-8.2)
[2025-03-04 18:07] LABS: HEMOLYSIS 55 (0-50); Potassium 4.2 mmol/L (3.4-5.1)
[2025-03-04 18:13] LABS: NT-proBNP (BNP-Adult 18+) 353 pg/mL (<450); Troponin I < 0.012 ng/mL (0.01-0.034)
[2025-03-04 19:47] VITALS: O2SAT 95
[2025-03-04 19:50] VITALS: BP 147/83; PULSE 61; O2SAT 96
[2025-03-04 20:00] VITALS: BP 137/81; PULSE 61; O2SAT 96
[2025-03-04 20:30] VITALS: BP 136/79; PULSE 58; O2SAT 96
[2025-03-04 21:20] LABS: Troponin I < 0.012 ng/mL (0.01-0.034)
== END 2025-03-04 22:09 | disposition left against medical advice (07) ==
PROVIDERS: Emergency Provider Emergency Medicine; PCP Family Medicine
DX: R10.9 Unspecified abdominal pain (principal); R68.83 Chills (without fever); R53.83 Other fatigue; I25.2 Old myocardial infarction
CPT/HCPCS: 71045; 80053; 82550; 83690; 83735; 83880; 84484; 85025; 85610; 85730; 93005; 93010; 99282